=== PATIENT | female | born 1985 | race Caucasian/White ===

== ENCOUNTER 2025-10-14 15:36 | Emergency (ER) | payer BC ==
[~2025-10-14] VITALS: Ht 162.6 cm; Wt 59.9 kg
[2025-10-14 15:49] VITALS: BP 131/69; TEMP 98.3; O2SAT 99
[2025-10-14] MEDS ORDERED: FLUT16SP BNOSTRILS (15:58)
[2025-10-14] MEDS ORDERED: PSEU120T57 PO (15:58)
[2025-10-14] MEDS ORDERED: AMOX-430 PO (15:58)
== END 2025-10-14 16:07 | disposition home or self-care (01) ==
LOC: ER 15:36
DX: J32.9 Chronic sinusitis, unspecified (principal)